=== PATIENT | male | born 1950 | race Caucasian/White ===

== ENCOUNTER 2018-06-11 15:38 | Inpatient (IN) | payer MEDICARE, OTHER | END 2018-06-12 12:55 | disposition short-term general hospital (02) | LOC: ER 15:38 → ICU 16:30 | PROC: 4A023N7 Measurement of Cardiac Sampling and Pressure, Left Heart, Percutaneous Approach (ICD-10-PCS; principal; 2018-06-12) | PROC: B2111ZZ Fluoroscopy of Multiple Coronary Arteries using Low Osmolar Contrast (ICD-10-PCS; 2018-06-12) | PROC: B2151ZZ Fluoroscopy of Left Heart using Low Osmolar Contrast (ICD-10-PCS; 2018-06-12) | PROC: B4101ZZ Fluoroscopy of Abdominal Aorta using Low Osmolar Contrast (ICD-10-PCS; 2018-06-12) | PROC: B4181ZZ Fluoroscopy of Bilateral Renal Arteries using Low Osmolar Contrast (ICD-10-PCS; 2018-06-12) | DX: I21.4 Non-ST elevation (NSTEMI) myocardial infarction (principal); I25.10 Atherosclerotic heart disease of native coronary artery without angina pectoris; I71.4 Abdominal aortic aneurysm, without rupture; I72.2 Aneurysm of renal artery; I10 Essential (primary) hypertension; K40.90 Unilateral inguinal hernia, without obstruction or gangrene, not specified as recurrent; F17.290 Nicotine dependence, other tobacco product, uncomplicated; Z85.89 Personal history of malignant neoplasm of other organs and systems; Z92.21 Personal history of antineoplastic chemotherapy; Z92.3 Personal history of irradiation ==

== ENCOUNTER 2019-11-13 13:00 | Outpatient (CLI) | payer MEDICARE ==
[~2019-11-13] VITALS: Ht 182.9 cm; Wt 90.9 kg
[~2019-11-13 13:00] MED LIST: GARL400T14 PO; LISI40TA PO; MAGN250T13 PO; OMEG10005 PO; POTA99TA7 PO
[2019-11-13] MEDS ORDERED: ASPI-1238 PO (13:31)
[2019-11-13] MEDS ORDERED: TMSL.4C PO (13:31)
[2019-11-13] MEDS ORDERED: ATOR40TA70 PO (13:31)
[2019-11-13] MEDS ORDERED: CLOP75TA69 PO (13:31)
[2019-11-13] MEDS ORDERED: LISI-552 PO (13:31)
[2019-11-13] MEDS ORDERED: CARV6.252 PO (13:31)
== END 2019-11-13 13:34 ==
LOC: PREOP 13:00
PROVIDERS: ATTEND Surgery
DX: Z01.818 Encounter for other preprocedural examination (principal)

== ENCOUNTER 2019-11-19 07:09 | Day surgery (SDC) | payer MEDICARE ==
[~2019-11-19] VITALS: Ht 182.9 cm; Wt 90.9 kg
[~2019-11-19 07:09] MED LIST changes: +ASPI-1238 PO; +ATOR40TA70 PO; +CARV6.252 PO; +CLOP75TA69 PO; +LISI-552 PO; +TMSL.4C PO
[2019-11-19] MEDS ORDERED: LACTATED RINGERS 1,000 ML IV ONE (07:10)
[2019-11-19] MEDS ORDERED: LACTATED RINGERS 1,000 ML IV STA (07:15)
[2019-11-19] MEDS ORDERED: PROPOFOL INJECTION 50 ML IV ONE (07:28)
[2019-11-19] MEDS ORDERED: MIDAZOLAM 2 MG/2 ML (VERSED) VIAL ONE (07:28)
[2019-11-19 07:46] VITALS: BP 133/90
[2019-11-19 08:55] VITALS: BP 90/63
[2019-11-19 09:00] VITALS: BP 89/69
[2019-11-19 09:10] VITALS: BP 106/68
--- NOTE | 2019-11-19 09:11 | Endoscopy Discharge Instruct ---
Endo Procedure/Findings Findings 1.: Polyp 2.: Diverticulosis 3.: Internal Hemorrhoids Discharge Instructions - Activity: You might feel a little sleepy until tomorrow. This is due to the medicine you received to relax you. Until tomorrow, you should: NOT drive a car, operate machinery or power tools. NOT drink any alcoholic beverages. NOT make any important decisions or sign importortant papers. Do not return to work until tomorrow, unless otherwise instructed. Resume previous activities tomorrow. Diet: Start by taking liquids. If you tolerate liquids, advance to solid food. 1.: Colonscopy in 5 years Notify Physician - If you experience excessive bleeding, unusual abdominal pain, fever, or chest pain, contact your doctor immediately. LETI KEVIN DO Nov 19, 2019 09:11
--- NOTE | 2019-11-19 09:11 | Progress Note-Post Operative ---
Post-Operative Progess Note Surgeon (s)/Hydrate Control Tender (s) Surgeon LETI KEVIN DO Hydrate Control Tender: VIC Sinclair Pre-Operative Diagnosis Screening colonoscopoy Post-Operative Diagnosis Polyps Diverticula Internal Hemorrhoids Procedure & Operative Findings Date of Procedure 11/19/19 Procedure Performed/Findings Colon with snare Colon with hot bx Anesthesia Type IV sedation by STAFF TOXICOLOGIST Estimated Blood Loss Estimated blood loss (mL): scant Specimens/Packing Specimens Removed Transverse colon polyp Rectal polyp x 2 LETI KEVIN DO Nov 19, 2019 09:10
[2019-11-19 10:10] VITALS: BP 125/88
--- NOTE | 2019-11-19 11:45 | Anesthesia-General Post-Op ---
MAC Patient Condition Mental Status/LOC: Same as Preop Cardiovascular: Satisfactory Nausea/Vomiting: Absent Respiratory: Satisfactory Pain: Controlled Complications: Absent Post Op Complications Complications None Follow Up Care/Instructions Patient Instructions None needed. Anesthesiology Discharge Order Discharge Order Patient is doing well, no complaints, stable vital signs, no apparent adverse anesthesia problems. No complications reported per nursing. DAVE GARCIA [id number] ANALYST Nov 19, 2019 11:45
--- NOTE | 2019-11-20 01:00 | OPERATIVE REPORT ---
DATE OF SERVICE: 11/19/2019 PREOPERATIVE DIAGNOSIS: Screening colonoscopy. POSTOPERATIVE DIAGNOSES: Colon polyps, diverticula, internal hemorrhoids. PROCEDURE: 1. Colonoscopy with snare polypectomy. 2. Colonoscopy with hot biopsy. SURGEON: Rayray Meneses DO HOSPITAL TELEVISION RENTAL CLERK: Ric Palencia MS3. ANESTHESIA: IV sedation by the MANAGER MEDICARE MARKETING. SPECIMEN: Transverse colon polyp, one small rectal polyp, one large rectal polyp. BLOOD LOSS: Scant. FLUIDS: Per anesthesia. POSTOPERATIVE CONDITION: Stable. INDICATION FOR PROCEDURE: The patient is a 69-year-old male who needs a screening colonoscopy. FINDINGS: The patient had a small polyp in the transverse colon, a small polyp in the rectum and then a larger polyp in the rectum. He also had some diverticula and some internal hemorrhoids. PROCEDURE NOTE: After informed consent was obtained, the patient was brought to the endoscopy suite, placed in bed in left lateral decubitus position. He was administered IV sedation by the MANAGER MEDICARE MARKETING who then monitored his vitals the entire time, heart rate, blood pressure and pulse ox and the scope was inserted, pushed all the way to about 140 cm, able to get all the way to cecum. On the way in, noted a small flat polyp in the transverse colon, did elect to do a hot biopsy of this. Also on the way in, noted some diverticula in the sigmoid colon, took pictures, able to push all the way to the cecum, took a picture of appendiceal orifice, noted the ileocecal valve and then slowly withdrew the scope insufflating to look circumferentially at the minor looking the cecum, up the ascending colon to the hepatic flexure, then down the transverse colon, splenic flexure, into the descending colon down in the sigmoid and finally into the rectum. In the rectum, saw another small flat polyp, I elected to do another hot biopsy and then while turning around to look saw a large polyp. Wanted to be able to remove this completely, so I elected to do a snare polypectomy, removed this polyp completely. Retroflexed the scope in the rectal vault, saw some internal hemorrhoids, took a picture and then removed the scope. The patient tolerated the procedure. He was recovered in endoscopy suite. Job ID: [id number] DocumentID: [id number] Dictated Date: 11/19/2019 15:26:01 Core Drilling Supervisor Date: 11/20/2019 00:59:44 Dictated By: DO JANY MCCANND
== END 2019-11-19 10:10 | disposition home or self-care (01) ==
LOC: ENDO 07:09
PROVIDERS: ATTEND Surgery
DX: Z12.11 Encounter for screening for malignant neoplasm of colon (principal); D12.3 Benign neoplasm of transverse colon; D12.8 Benign neoplasm of rectum; K57.30 Diverticulosis of large intestine without perforation or abscess without bleeding; K64.8 Other hemorrhoids; I10 Essential (primary) hypertension; I25.2 Old myocardial infarction; I25.119 Atherosclerotic heart disease of native coronary artery with unspecified angina pectoris; F17.210 Nicotine dependence, cigarettes, uncomplicated; Z79.899 Other long term (current) drug therapy; Z88.5 Allergy status to narcotic agent; Z95.5 Presence of coronary angioplasty implant and graft; Z86.03 Personal history of neoplasm of uncertain behavior
CPT/HCPCS: 88305

== ENCOUNTER 2019-11-21 13:03 | Day surgery (SDC) | payer MEDICARE ==
[~2019-11-21] VITALS: Ht 182.8 cm; Wt 88.0 kg
[~2019-11-21 13:03] MED LIST changes: +HEParin 1000 UNIT/ML (10ML VIAL) FOR BOLUS ONE; +MIDAZOLAM 5 MG/5 ML (VERSED) VIAL ONE; +NITRO DRIP 25000 MCG/D5W 0 ML IV ONE; +fentaNYL INJECTION 100 MCG/2 ML AMP ONE
[2019-11-21] MEDS ORDERED: LIDOCAINE 1% INJ 20 ML 20 ML VIAL ONE (13:20)
[2019-11-21] MEDS ORDERED: HEParin (CATH LAB) 2,000 ML IV ONE (13:20)
[2019-11-21] MEDS ORDERED: NS IV 1000 ML 1,000 ML ONE (13:20)
[2019-11-21 13:21] LABS: BASOPHILS # (AUTO) 0.1 10^3/uL (0.0-0.1); BASOPHILS % (AUTO) 1 % (0-10); EOSINOPHILS # (AUTO) 0.1 10^3/uL (0.0-0.3); EOSINOPHILS % (AUTO) 1 % (0-10); HEMATOCRIT 40 % (40-54); HEMOGLOBIN 13.5 g/dL (13.3-17.7); LYMPHOCYTES # (AUTO) 2.2 10^3/uL (1.0-4.0); LYMPHOCYTES % (AUTO) 22 % (12-44); MEAN CORPUSCULAR HEMOGLOBIN 30 pg (25-34); MEAN CORPUSCULAR HGB CONC 34 g/dL (32-36); MEAN CORPUSCULAR VOLUME 90 fL (80-99); MEAN PLATELET VOLUME 9.3 fL (9.0-12.2); MONOCYTES # (AUTO) 0.6 10^3/uL (0.0-1.0); MONOCYTES % (AUTO) 6 % (0-12); NEUTROPHILS # (AUTO) 7.2 10^3/uL (1.8-7.8); NEUTROPHILS % (AUTO) 70 % (42-75); PLATELET COUNT 213 10^3/uL (130-400); WHITE BLOOD COUNT 10.3 10^3/uL (4.3-11.0)
--- NOTE | 2019-11-21 13:29 | Cardiology History & Physical ---
HPI-Cardiology Cardiology Consultation Date of Consultation 11/21/19 Date of Admission Time Seen by Provider: 13:26 Indication: chest pain HPI 69 years old gentleman with extensive coronary artery disease, hypertension hyperlipidemia and tobaccoism. He has stopped his Plavix about a week ago in preparation for colonoscopy, had a colonoscopy done 2 days ago, restarted Plavix this morning, started to have left arm pain and left side of his neck pain and jaw pain similar to the pain that he had prior to his initial cardiac catheterization. Cold EMS he was noted to have EKG changes. Given morphine and sublingual nitroglycerin reported improvement of his chest pain, still having mild left arm discomfort, no shortness of breath. No palpitation. No syncope or near syncopal episodes. No claudications. No fever or chills. PMH-Cardiology Seasonal Allergies Seasonal Allergies: No Surgeries Yes (HERNIA REPAIR, NECK SX ) Respiratory No Cardiovascular Yes Neurological No (seizures when little none since 7 yrs old) Genitourinary No Gastrointestinal Yes (INGUINAL HERNIA) Musculoskeletal No Endocrine No HEENT No Cancer Yes Type of Treatment: Radiation Psychosocial No Integumentary No Blood Transfusions No Social History Patient Social History Marrital Status: Employed/Student: employed Smoking: Current every day smoker Family Hx Other Discussed below ROS-Cardiology Review of Systems General: No Chills, No Night Sweats; Fatigue; No Malaise, No Appetite HEENT: No Head Aches, No Visual Changes, No Eye Pain, No Ear Pain, No Dysphasia, No Sinus Congestion, No Post Nasal Drip, No Sore Throat Pulmonary: Dyspnea; No Cough, No Pleuritic Chest Pain Cardiovascular: Chest Pain; No: Palpitations, Orthopnea, Paroxysmal Noc. Dyspnea, Edema, Lt Headedness Gastrointestinal: No: Nausea, Vomiting, Abdominal Pain, Diarrhea, Constipation, Melena, Hematochezia Genitourinary: No Dysuria, No Frequency, No Incontinence, No Hematuria, No Retention Musculoskeletal: No: neck pain, shoulder pain, arm pain, back pain, hand pain, leg pain, foot pain Neurological: No: Weakness, Numbness, Incoordination, Change in speech, Confusion, Seizures Home Medications & Allergies Allergies: Coded Allergies: meperidine (Verified Allergy, Unknown, 06/11/18) sweats and heart racing Home Medication List Reviewed: Yes Exam-Cardiology Exam General Appearance: Alert, Oriented X3, Cooperative, No Acute Distress HEENT: Atraumatic, PERRLA Respiratory: Clear to Auscultation, Normal Air Movement Cardiovascular: Regular Rate, Normal S1, Normal S2, No Murmurs Abdominal: Normal Bowel Sounds, Soft, No Tenderness, No Hepatosplenomegaly, No Masses Extremities: No Clubbing, No Cyanosis, No Edema, Normal Pulses, No Tenderness/Swelling Skin: No Rashes, No Breakdown, No Significant Lesion Neuro: Normal Gait, Normal Speech, Strength at 5/5 X4 Ext, Normal Tone, Sensation Intact Psych/Mental Status: Mental Status NL, Mood NL Results Labs Labs Laboratory Tests 11/21/19 13:10: White Blood Count 10.3, Red Blood Count 4.47, Hemoglobin 13.5, Hematocrit 40, Mean Corpuscular Volume 90, Mean Corpuscular Hemoglobin 30, Mean Corpuscular Hemoglobin Concent 34, Red Cell Distribution Width 12.7, Platelet Count 213, Mean Platelet Volume 9.3, Immature Granulocyte % (Auto) 1, Neutrophils (%) (Auto) 70, Lymphocytes (%) (Auto) 22, Monocytes (%) (Auto) 6, Eosinophils (%) (Auto) 1, Basophils (%) (Auto) 1, Neutrophils # (Auto) 7.2, Lymphocytes # (Auto) 2.2, Monocytes # (Auto) 0.6, Eosinophils # (Auto) 0.1, Basophils # (Auto) 0.1, Immature Granulocyte # (Auto) 0.1 A/P-Cardiology Admission Diagnosis Unstable angina Coronary artery disease Hypertension Hyperlipidemia Admission Status: Observation Assessment/Plan Unstable angina, EKG changes, planning to proceed with emergency cardiac catheterization possible PTCA Coronary artery disease, had a cardiac catheterization May [address] Smith reported multivessel coronary artery disease referred for evaluation for bypass surgery, patient elected to high risk intervention had complex multives clari intervention in [facility]. Has been following with Dr. 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 Carver Hypertension, restart home medication and monitor Hyperlipidemia, restart home medication monitor Tobaccoism, educated on smoking cessation RASHAWN BOWERS MD Nov 21, 2019 13:29
--- NOTE | 2019-11-21 13:30 | Cardiac Procedure Note-CS/ASA ---
Pre-Procedure Note Pre-Op Procedure Note H&P Reviewed The H&P was reviewed, patient examined and no changes noted. Date H&P Reviewed: Nov 21, 2019 Time H&P Reviewed: 13:29 Conscious Sedation Pre-Proced Time 13:29 ASA Score 3 For ASA 3 and 4: Consider anesthesia and medical clearance. Also, for patients with a history of failed moderate sedation consider anesthesia. Airway Lungs Heart ASA score ASA 1: a normal healthy patient ASA 2: a patient with a mild systemic disease (mid diabetes, controlled hypertension, obesity x ASA 3: a patient with a severe systemic disease that limits activity (angina, COPD, prior Myocardial infarction) ASA 4: a patient with an incapacitating disease that is a constant threat to life (CHF, renal failure) ASA 5: a moribund patient not expected to survive 24 hrs. (ruptured aneurysm) ASA 6: a declared brain- patient whose organs are being harvested. For emergent operations, add the letter E after the classification Mallampati Classification Grade 3 Sedation Plan Analgesia, Amnesia, Plan communicated to team members, Discussed options with patient/fam, Discussed risks with patient/fam The patient is an appropriate candidate to undergo the planned procedure, sedation, and anesthesia. The patient immediately re-assessed prior to indication. RASHAWN BOWERS MD Nov 21, 2019 13:30
[2019-11-21 13:40] LABS: ALBUMIN 3.3 GM/DL (3.2-4.5); CHLORIDE 101 MMOL/L (98-107); POTASSIUM 3.6 MMOL/L (3.6-5.0); SODIUM 133 MMOL/L (135-145)
[2019-11-21 13:41] LABS: CALCIUM 8.4 MG/DL (8.5-10.1)
[2019-11-21 13:43] LABS: GLUCOSE 99 MG/DL (70-105); TOTAL PROTEIN 6.5 GM/DL (6.4-8.2)
[2019-11-21 13:44] LABS: CARBON DIOXIDE 21 MMOL/L (21-32)
[2019-11-21 13:44] LABS: INR 1.2 (0.8-1.4); PROTHROMBIN TIME PATIENT 15.2 SEC (12.2-14.7)
[2019-11-21 13:45] LABS: BILIRUBIN,TOTAL 1.3 MG/DL (0.1-1.0)
--- NOTE | 2019-11-21 13:45 | NUR ---
Have attempted to call pt's twice. No answer and no voicemail set up.
[2019-11-21 13:46] LABS: ALKALINE PHOSPHATASE 181 U/L (40-136); CREATININE SERUM 0.73 MG/DL (0.60-1.30); GFR ESTIMATED > 60
[2019-11-21 13:47] LABS: BUN/CREATININE RATIO 11
--- NOTE | 2019-11-21 13:48 | ED Chest Pain ---
General Chief Complaint: Chest Pain Stated Complaint: STEMI Nursing Triage Note: Pt to ED via EM for chest pain. 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 Pt reports pain radiated to L arm and described as tingling. Pt reports pain had resolved by time of arrival to ED. Pt reports stopping Plavix a couple days ago. EMS reports giving Pt 6 mg of morphine, 3 nitro and 324 mg ASA enroute. Nursing Sepsis Screen: No Definite Risk Source: patient Exam Limitations: no limitations History of Present Illness Date Seen by Provider: Nov 21, 2019 Time Seen by Provider: 13:15 Initial Comments This 69-year-old gentleman presents to the emergency room via [facility] with reported STEMI. Patient developed chest pain while working this morning. EMS administered nitroglycerin 3, aspirin, and morphine 6 mg IV. Pain resolved with these therapies. Multiple 12-lead EKGs performed by EMS suggested ST eleva tion. EKG obtained on arrival suggested ischemia but was not diagnostic for STEMI. Dr. Christianson have been notified prior to patient arrival in promptly presented to the ER. Patient denied any cough, fever, shortness of breath, or known coded exposures. Family reported he may have had an exposure to someone he gave ride to, but that about 2 weeks ago. Rapid COVID swab was obtained. Allergies and Home Medications Allergies Coded Allergies: meperidine (Verified Allergy, Unknown, 06/11/18) sweats and heart racing Home Medications Aspirin 81 Mg Tablet.dr, 81 MG PO DAILY, (Reported) Atorvastatin Calcium 40 Mg Tablet, 40 MG PO DAILY, (Reported) Carvedilol 6.25 Mg Tablet, 6.25 MG PO BID, (Reported) Clopidogrel Bisulfate 75 Mg Tablet, 75 MG PO DAILY, (Reported) Isosorbide Mononitrate 30 Mg Tab.er.24h, 30 MG PO DAILY Prescribed by: OMAR ENCARNACION on 11/22/19 0814 Lisinopril 20 Mg Tablet, 20 MG PO DAILY, (Reported) [place]-3 Fatty Acids 1,000 Mg Capsule, 1,000 MG PO DAILY, (Reported) Tamsulosin HCl 0.4 Mg Cap, 0.4 MG PO DAILY, (Reported) Patient Home Medication List Home Medication List Reviewed: Yes Review of Systems Review of Systems Constitutional: no symptoms reported EENTM: No Symptoms Reported Respiratory: No Symptoms Reported Cardiovascular: See HPI Gastrointestinal: No Symptoms Reported Genitourinary: No Symptoms Reported Musculoskeletal: no symptoms reported Skin: no symptoms reported Psychiatric/Neurological: No Symptoms Reported Endocrine: No Symptoms Reported Hematologic/Lymphatic: No Symptoms Reported Past Jptdbbb-[id number]-Ornnyd Hx Past Med/Social Hx: Reviewed Nursing Past Med/Soc Hx Patient Social History Alcohol Use: Denies Use Recreational Drug Use: No Smoking Status: Current Everyday Smoker Type Used: Cigarettes, Pipe Recent Foreign Travel: No Contact w/Someone Who Travel: No Recent Infectious Disease Expo: No Recent Hopitalizations: No Seasonal Allergies Seasonal Allergies: No Past Medical History Surgeries: Yes (HERNIA REPAIR, NECK SX ) Coronary Stent Respiratory: No Cardiac: Yes Coronary Artery Disease, Heart Attack, Hypertension Neurological: No (seizures when little none since 7 yrs old) Genitourinary: No Gastrointestinal: Yes (INGUINAL HERNIA) Musculoskeletal: No Endocrine: No HEENT: No Cancer: Yes What Type of Treatment Did You: Radiation Psychosocial: No Integumentary: No Blood Disorders: No Physical Exam Vital Signs Vital Signs - First Documented Capillary Refill : Less Than 3 Seconds Height, Weight, BMI Height: 6'0.00" Weight: 199lbs. 8.0oz. 90.059655uq; 27.00 BMI Method:Stated General Appearance: No Apparent Distress, WD/WN HEENT: PERRL/EOMI, Normal ENT Inspection Neck: Normal Inspection; No JVD Respiratory: Lungs Clear, Normal Breath Sounds, No Accessory Muscle Use, No Respiratory Distress Cardiovascular: Regular Rate, Rhythm, No Edema, Normal Peripheral Pulses Gastrointestinal: Normal Bowel Sounds, Non Tender, Soft Extremity: Normal Inspection, No Pedal Edema Neurologic/Psychiatric: Alert, Oriented x3, No Motor/Sensory Deficits, Normal Mood/Affect, lead trainer II-XII Norm as Tested Skin: Normal Color, Warm/Dry Progress/Results/Core Measures Results/Orders Lab Results Laboratory Tests Test 11/21/19 13:04 11/21/19 13:10 Range/Units Prothrombin Time 15.2 H 12.2-14.7 SEC INR Comment 1.2 0.8-1.4 Activated Partial Thromboplast Time 26 24-35 SEC White Blood Count 10.3 4.3-11.0 10^3/uL Red Blood Count 4.47 4.30-5.52 10^6/uL Hemoglobin 13.5 13.3-17.7 g/dL Hematocrit 40 40-54 % Mean Corpuscular Volume 90 80-99 fL Mean Corpuscular Hemoglobin 30 25-34 pg Mean Corpuscular Hemoglobin Concent 34 32-36 g/dL Red Cell Distribution Width 12.7 10.0-14.5 % Platelet Count 213 130-400 10^3/uL Mean Platelet Volume 9.3 9.0-12.2 fL Immature Granulocyte % (Auto) 1 % Neutrophils (%) (Auto) 70 42-75 % Lymphocytes (%) (Auto) 22 12-44 % Monocytes (%) (Auto) 6 0-12 % Eosinophils (%) (Auto) 1 0-10 % Basophils (%) (Auto) 1 0-10 % Neutrophils # (Auto) 7.2 1.8-7.8 10^3/uL Lymphocytes # (Auto) 2.2 1.0-4.0 10^3/uL Monocytes # (Auto) 0.6 0.0-1.0 10^3/uL Eosinophils # (Auto) 0.1 0.0-0.3 10^3/uL Basophils # (Auto) 0.1 0.0-0.1 10^3/uL Immature Granulocyte # (Auto) 0.1 0.0-0.1 10^3/uL Sodium Level 133 L 135-145 MMOL/L Potassium Level 3.6 3.6-5.0 MMOL/L Chloride Level 101 98-107 MMOL/L Carbon Dioxide Level 21 21-32 MMOL/L Anion Gap 11 5-14 MMOL/L Blood Urea Nitrogen 8 7-18 MG/DL Creatinine 0.73 0.60-1.30 MG/DL Estimat Glomerular Filtration Rate > 60 BUN/Creatinine Ratio 11 Glucose Level 99 70-105 MG/DL Calcium Level 8.4 L 8.5-10.1 MG/DL Corrected Calcium 9.0 8.5-10.1 MG/DL Magnesium Level 1.5 L 1.6-2.4 MG/DL Total Bilirubin 1.3 H 0.1-1.0 MG/DL Aspartate Amino Transf (AST/SGOT) 21 5-34 U/L Alanine Aminotransferase (ALT/SGPT) 14 0-55 U/L Alkaline Phosphatase 181 H 40-136 U/L Myoglobin 86.9 10.0-92.0 NG/ML Troponin I 0.098 H <0.028 NG/ML B-Type Natriuretic Peptide 148.0 H <100.0 PG/ML Total Protein 6.5 6.4-8.2 GM/DL Albumin 3.3 3.2-4.5 GM/DL Coronavirus 2019 (MARIAH) Negative Negative Vital Signs/I&O 11/21/19 11/21/19 13:05 13:05 Temp 36.9 Pulse 76 Resp 17 B/P (MAP) 124/95 (105) Pulse Ox 97 O2 Delivery Room Air Room Air Blood Pressure Mean: 105 Progress Progress Note : Progress Note Dr. Christianson was contacted and Motor Vehicle Field Representative activated prior to patient's arrival. They presented promptly to the ER to assess patient. EKG suggested some ischemia but not diagnostic for STEMI. Working diagnosis was unstable angina and patient was taken to the Motor Vehicle Field Representative. Initial ECG Impression Date: Nov 21, 2019 Initial ECG Impression Time: 13:06 Initial ECG Rate: 87 Initial ECG Rhythm: Normal Sinus Comment Sinus rhythm with borderline ST elevation. RBBB. No axis deviation. Diagnostic Imaging Diagonstic Imaging: Xray Plain Films/CT/US/NM/MRI: chest Comments NAME: JERRY JURADO MED REC#: [id number] PT STATUS: REG [facility] : 1950 PHYSICIAN: ADONAY TRINIDAD ADMIT DATE: 11/21/19/[facility] Signed Date of Exam:11/21/19 CHEST 1 VIEW, AP/PA ONLY INDICATION: Chest pain. COMPARISON: 06/11/2018. FINDINGS: Some prominence of the lung markings and air trapping as well as biapical scarring chronic. No acute infiltrate, failure pattern, effusion or pneumothorax. IMPRESSION: Stable chronic findings. Dictated by: Dictated on workstation # [id number] Dict: 11/21/19 1342 Trans: 11/21/19 1636 [facility] [id number] Interpreted by: ELPIDIO DORANTES Electronically signed by: ELPIDIO DORANTES 11/21/19 1636 Departure Communication (Admissions) Time/Spoke to Admitting Phy: 12:34 Dr. Christianson Impression Primary Impression: Unstable angina Additional Impression: Chest pain Qualified Codes: R07.9 - Chest pain, unspecified Disposition: ADMITTED INPATIENT Condition: Stable Admissions Decision to Admit Reason: Admit from ER (General) Decision to Admit/Date: Nov 21, 2019 Time/Decision to Admit Time: 13:15 Departure-Patient Inst. Referrals: NO,LOCAL PHYSICIAN (PCP/Family) Primary Care Physician Scripts Isosorbide Mononitrate (Isosorbide Mononitrate ER) 30 Mg Tab.er.24h 30 MG PO DAILY for 30 Days, #30 TAB 5 Refills Prov: OMAR PEDRO 11/22/19 DION SNOW MD Nov 21, 2019 13:48
[2019-11-21 13:49] LABS: ALANINE AMINOTRANSFERASE 14 U/L (0-55); MAGNESIUM 1.5 MG/DL (1.6-2.4)
[2019-11-21] MEDS ORDERED: NS IV 1000 ML 1,000 ML IV SCH (14:34)
[2019-11-21] MEDS ORDERED: PATIENT MAY USE OWN MEDS, ALL PO SCH (14:45)
--- NOTE | 2019-11-21 15:18 | Cardiac Cath Report ---
Cardiac Cath Report Physician (s)/Program Proposals Coordinator (s) Physician RASHAWN BOWERS MD Pre-Procedure Diagnosis Pre-Procedure Diagnosis: chest pain, coronary artery disease Post-Procedure Note Procedure Start Date: Nov 21, 2019 Name of Procedure: Left heart catheterization Left ventriculogram Aortic arch angiogram Findings/Procedure Note PROCEDURE NOTE: 69 years old gentleman with history of extensive coronary artery disease, multiple intervention done in 2019, admitted with acute chest pain, known to have abdominal aortic aneurysm diffuse ectasia. Had mild elevation troponin, decided to proceed with cardiac catheterization possible PTCA. After explaining the procedure to the patient, all pros and cons were explained, all questions were answered. The patient signed the consent and then he was placed on the cardiac catheterization laboratory. Groin was prepped SL fashion local anesthesia was used. Sheath placed in the right femoral artery. Lisa right and left catheter were used to access the coronary system. Pigtail was used to access the left ventricular cavity. Left ventriculogram was done Aortic arch angiogram was done to evaluate the aortic arch due to the fact that he has extensive aortic aneurysm reported previously. At the end of the procedure the sheath was removed. Closure device was used FINDINGS: Hemodynamics LV 143/23, end-diastolic pressure of 23 Aorta 148/83 mean of 105 ANATOMY: Left Main is free of obstructive disease Left Anterior Descending has diffuse ectasia, patent stent in the mid LAD, small vessel disease distally Left Circumflex has diffuse ectasia with patent stent in the mid circumflex artery Right Coronory Artery has diffuse ectasia with patent stent in the proximal right coronary artery LV Gram was done showing normal left ventricular size and systolic function estimated ejection fraction 60 percent Aorta evaluation done with aortic arch angiogram showing a normal aortic arch, severe bovine arch, severe hypertensive changes, normal origin of the vertebral basilar artery, left subclavian and left carotid artery CONCLUSION: 1. 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 Normal left ventricular size and systolic function estimated ejection fraction 60 percent 3. Heavily calcified aortic arch with bovine arch, calcified arteries of the neck, no dissection or aneurysm, hypertensive changes DISCUSSION AND RECOMMENDATION: Maximizing medical therapy is recommended. No intervention is warranted Anesthesia Type: Conscious Sedation Estimated blood loss (mL): 25 ml Contrast Amount: 65 ml Total Radiation Dose: 618 mGy Post-Procedure Diagnosis Post-operative diagnosis: Unstable angina Coronary artery disease Hypertension Hyperlipidemia RASHAWN BOWERS MD Nov 21, 2019 15:18
--- NOTE | 2019-11-21 15:24 | NUR ---
PT DENIES ANY FEVER/COUGH/SOB; THIS RN SPOKE TO ER AND ALLY EDWARD RN, NO NEED TO COVID SWAB PT AT THIS TIME.
--- NOTE | 2019-11-21 19:06 | NUR ---
PT TRANSFERRED TO ROOM 410 VIA DELLA W/ LETI GRACIA. REPORT GIVEN TO EMILIE GRACIA, NO QUESTIONS/CONCERNS VOICED.
--- NOTE | 2019-11-21 19:35 | NUR ---
puma at bedside with pt-this rn examined pt groin site with puma-site soft, no drainage noted, pedal pulses equal bilaterally. pt denies any questions or concerns at this time.
[2019-11-21] MEDS: CARVEDILOL 6.25 MG (COREG) TAB PO SCH (20:07)
[2019-11-21 22:23] VITALS: BP 150/88
--- NOTE | 2019-11-21 22:36 | NUR ---
pt refusing flu vac. pt states he does not take immunizations.
[2019-11-22 05:10] LABS: HEMOGLOBIN 13.2 g/dL (13.3-17.7); MEAN PLATELET VOLUME 9.7 fL (9.0-12.2); WHITE BLOOD COUNT 7.5 10^3/uL (4.3-11.0)
[2019-11-22 05:51] LABS: CHLORIDE 106 MMOL/L (98-107); POTASSIUM 3.9 MMOL/L (3.6-5.0); SODIUM 138 MMOL/L (135-145)
[2019-11-22 05:52] LABS: ALBUMIN 3.1 GM/DL (3.2-4.5)
[2019-11-22 05:53] LABS: CALCIUM 8.4 MG/DL (8.5-10.1); TRIGLYCERIDES 88 MG/DL (<150); VLDL CHOLESTEROL 18 MG/DL (5-40)
[2019-11-22 05:54] LABS: GLUCOSE 83 MG/DL (70-105); TOTAL PROTEIN 6.2 GM/DL (6.4-8.2)
[2019-11-22 05:55] LABS: CARBON DIOXIDE 23 MMOL/L (21-32)
[2019-11-22 05:56] LABS: BILIRUBIN,TOTAL 0.8 MG/DL (0.1-1.0)
[2019-11-22 05:58] LABS: ALKALINE PHOSPHATASE 166 U/L (40-136); CHOLESTEROL 82 MG/DL (< 200); CREATININE SERUM 0.76 MG/DL (0.60-1.30); GFR ESTIMATED > 60
[2019-11-22 05:59] LABS: BUN/CREATININE RATIO 9
[2019-11-22 06:00] LABS: HDL CHOLESTEROL 21 MG/DL (40-60)
[2019-11-22 06:01] LABS: ALANINE AMINOTRANSFERASE 16 U/L (0-55)
--- NOTE | 2019-11-22 08:10 | Cardiology Progress Note ---
Subjective Date Seen by Provider: Nov 22, 2019 Time Seen by Provider: 08:08 Subjective/Events-last exam Patient is sitting up in bed, denies any further episode of chest pain or dyspnea Review of Systems General: No Chills, No Night Sweats, No Fatigue, No Malaise, No Appetite, No Other HEENT: No Head Aches, No Visual Changes, No Eye Pain, No Ear Pain, No Dysphasia, No Sinus Congestion, No Post Nasal Drip, No Sore Throat, No Other Pulmonary: No Dyspnea, No Cough, No Pleuritic Chest Pain, No Other Cardiovascular: No: Chest Pain, Palpitations, Orthopnea, Paroxysmal Noc. Dyspnea, Edema, Lt Headedness, Other Objective-Cardiology Exam Last Set of Vital Signs Bad tableI&O Intake and Output 11/22/19 00:00 Intake Total 1000 ml Output Total 1200 ml Balance -200 ml Intake Oral 1000 ml Output Urine Total 1200 ml # Voids 1 Daily Weight Change No No General: Alert, Oriented X3, Cooperative, No Acute Distress HEENT: Atraumatic, PERRLA Lungs: Clear to Auscultation, Normal Air Movement Heart: Regular Rate, Normal S1, Normal S2, No Murmurs Abdomen: Normal Bowel Sounds, Soft, No Tenderness, No Hepatosplenomegaly, No Masses Extremities: No Clubbing, No Cyanosis, No Edema, Normal Pulses, No Tend erness/Swelling Skin: No Rashes, No Breakdown, No Significant Lesion Neuro: Normal Gait, Normal Speech, Strength at 5/5 X4 Ext, Normal Tone, Sensation Intact Psych/Mental Status: Mental Status NL, Mood NL Results Lab Laboratory Tests 11/21/19 13:10 11/22/19 04:30 A/P-Cardiology Admission Diagnosis Unstable angina Coronary artery disease Hypertension Hyperlipidemia Assessment/Plan Unstable angina, EKG changes, underwent cardiac catheterization yesterday revealing diffuse coronary ectasia with small vessel disease, patent stent in the LAD, stent in the circumflex artery and stent in the right coronary artery. Normal left ventricular size and systolic function estimated ejection fraction 60 percent. Heavily calcified aortic arch with bovine arch, calcified arteries of the neck, no dissection or aneurysm, hypertensive changes. Chest pain likely secondary to small vessel disease. I will start patient on Imdur. Coronary artery disease, had a cardiac catheterization May [address] Smith reported multivessel coronary artery disease referred for evaluation for bypass surgery, patient elected to high risk intervention had complex multivessel intervention in [facility]. Has been following with Dr. Carver. Underwent cardiac catheterization yesterday as discussed above. 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 Carver Hypertension, continue to monitor Hyperlipidemia, continue to monitor. Tobaccoism, educated on smoking cessation Patient was seen and evaluated with Adry, examination performed, management plan was discussed, agree with the current scribed note, I made few changes to the note using Italic font Patient was seen and evaluated, groin is healing well Had a long discussion about his coronary anatomy recommended the use of long- acting nitroglycerin Educated in length compliance with medications smoking cessation Clinical Quality Measures AMI/AHF: ASA po Prior to arrival: Yes (324 mg per EMS) DVT/VTE Risk/Contraindication: Risk Factor Score Per Nursin RFS Level Per Nursing on Admit: 2=Moderate ADRY PEDRO Nov 22, 2019 8:10 am RASHAWN BOWERS MD Nov 22, 2019 9:02 am
--- NOTE | 2019-11-22 08:11 | Cardiology Progress Note ---
Subjective Date Seen by Provider: Nov 22, 2019 Time Seen by Provider: 08:06 Subjective/Events-last exam Patient is sitting up in bed, denies any further episode of chest pain or dy spnea. Objective-Cardiology Exam Last Set of Vital Signs Vital Signs 11/22/19 09:40 Temp 36.7 Pulse 77 Resp 17 B/P (MAP) 124/74 Pulse Ox 94 O2 Delivery Room Air Capillary Refill : Less Than 3 Seconds I&O General: Alert, Oriented X3, Cooperative, No Acute Distress HEENT: Atraumatic, PERRLA Lungs: Clear to Auscultation, Normal Air Movement Heart: Regular Rate, Normal S1, Normal S2, No Murmurs Abdomen: Normal Bowel Sounds, Soft, No Tenderness, No Hepatosplenomegaly, No Masses Extremities: No Clubbing, No Cyanosis, No Edema, Normal Pulses, No Tenderness/Swelling Skin: No Rashes, No Breakdown, No Significant Lesion Neuro: Normal Gait, Normal Speech, Strength at 5/5 X4 Ext, Normal Tone, Sensation Intact Psych/Mental Status: Mental Status NL, Mood NL Results Lab A/P-Cardiology Admission Diagnosis Unstable angina Coronary artery disease Hypertension Hyperlipidemia Assessment/Plan Unstable angina, EKG changes, cardiac catheterization carried out yesterday showed Coronary artery disease, had a cardiac catheterization May [address] Smith reported multivessel coronary artery disease referred for evaluation for bypass surgery, patient elected to high risk intervention had complex multivessel intervention in [facility]. Has been following with Dr. 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 Carver Hypertension, restart home medication and monitor Hyperlipidemia, restart home medication monitor Tobaccoism, educated on smoking cessation Clinical Quality Measures AMI/AHF: ASA po Prior to arrival: Yes (324 mg per EMS) DVT/VTE Risk/Contraindication: Risk Factor Score Per Nursin RFS Level Per Nursing on Admit: 2=Moderate OMAR PEDRO Nov 22, 2019 08:11
[2019-11-22] MEDS ORDERED: ISOS30TA3 PO (08:14)
[2019-11-22] MEDS: CARVEDILOL 6.25 MG (COREG) TAB PO SCH (08:43)
[2019-11-22] MEDS ORDERED: FATTY ACIDS PO SCH (09:00)
[2019-11-22] MEDS ORDERED: TAMSULOSIN 0.4 MG (FLOMAX) CAP PO SCH (09:00)
[2019-11-22] MEDS ORDERED: OMEGA 3 (FISH OIL) 1000 MG CAP PO SCH (09:00)
[2019-11-22] MEDS ORDERED: lisINopril 20 MG (PRINIVIL) TABLET PO SCH (09:00)
[2019-11-22] MEDS ORDERED: ASPIRIN E.C. 81 MG (ECOTRIN) TAB PO SCH (09:00)
[2019-11-22] MEDS ORDERED: OMEGA PO SCH (09:00)
[2019-11-22] MEDS ORDERED: CLOPIDOGREL 75 MG (PLAVIX) TABLET PO SCH (09:00)
--- NOTE | 2019-11-22 09:00 | Discharge Inst-Post CATH ---
Discharge Inst-CATH/EP Problems Reviewed?: Yes Post Cardiac Cath/EP D/C Inst Follow Up/Plan Appointment with primary recruit instructor in 1-2 weeks <b>CARDIAC CATH/EP PROCEDURE DISCHARGE INSTRUCTIONS</b> ACTIVITY * Go Home directly and rest. * Limit activity of the leg (or wrist if it was used) for 7 days including aero bics, swimming, jogging, bicycling, etc. * Restrict stair-climbing for 7 days if possible, if not, climb up with your non-cath leg, then bring together on the same step. * Avoid lifting, pushing, pulling or excessive movement of the affected extremit y for 7 days. * Customary sexual activity may be resumed after 2 days-use caution not to use a position that strains or causes pain to the affected extremity. * No driving for 24 hours. * NO SMOKING. * Avoid straining for bowel movements for 7 days. * Gentle walking on level ground is allowed. * Returning to work will depend on the type of procedure and the results. Your doctor will discuss this with you. CALL YOUR DOCTOR FOR ANY OF THE FOLLOWING: *If bleeding from the puncture site occurs- Apply gentle pressure to site with clean cloth and call your doctor or EMS. * If a knot or lump forms under the skin, increases in size, or causes pain. * If bruising appears to be worsening or moving further down your leg instead of disappearing. * Temperature above 101 F. CARE OF YOUR GROIN INCISION; * Bruising or purple discoloration of the skin near the puncture site is common. * You may shower only, no bathtub bathing for 5 days. Be careful to avoid slipping as your leg may feel stiff. * If a closure device was used on your femoral artery, please see the attached guide regarding care of the device and your leg. * Leave dressing on FOR 24 hours. CARE OF YOUR WRIST INCISION; * Bruising or purple discoloration of the skin near the puncture site is common. * You may shower. * DO NOT submerge wrist. * Leave dressing on FOR 24 hours. RASHAWN BOWERS MD Nov 22, 2019 09:00
--- NOTE | 2019-11-22 09:30 | NUR ---
CM/SS: Visit with pt as per consult related to needing Transportation home Plan: Pt will return home and his daughter will be able to pick him up this morning Summary: Pt was having some issues with getting a ride home. Pt lives in [place] and his has not driven for 25 years due to having multiple sclerosis. Pt reports he did get the ride situation worked out, as his daughter who lives in [place] will be able to come and pick him up. 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 Pt is able to give some life review and seems eager to get home to be able to care for his . Daughter is in route, pt has requested IV's be removed. This worker wishes pt well, and does share with BASIL Morocho his urgency in being able to get home to care for his spouse. This worker will follow up.
[2019-11-22 09:40] VITALS: BP 124/74
== END 2019-11-22 09:40 | disposition home or self-care (01) ==
LOC: ER 13:03 → EDUNIT# 13:03 → CATH 13:15 → CSD 14:54 → 4TH 19:22 → CATH 11-22 09:40
PROVIDERS: ATTEND Internal Medicine Cardiovascular Disease
DX: I25.110 Atherosclerotic heart disease of native coronary artery with unstable angina pectoris (principal); I71.4 Abdominal aortic aneurysm, without rupture; I10 Essential (primary) hypertension; E78.5 Hyperlipidemia, unspecified; F17.210 Nicotine dependence, cigarettes, uncomplicated; Z79.899 Other long term (current) drug therapy; Z88.5 Allergy status to narcotic agent; Z95.5 Presence of coronary angioplasty implant and graft; Z20.828 Contact with and (suspected) exposure to other viral communicable diseases
CPT/HCPCS: 36221; 71045; 80053 ×2; 80061; 83735; 83874; 83880; 84484; 85025; 85027; 85610; 85730; 93005 ×2; 93041; 93458; 99285; C1760; C1894; U0002; 36415; 87635

== ENCOUNTER 2020-06-03 14:07 | Outpatient (RCR) | payer MEDICARE ==
[~2020-06-03 14:07] MED LIST changes: -GARL400T14 PO; +GARL400T15 PO; -HEParin 1000 UNIT/ML (10ML VIAL) FOR BOLUS ONE; +ISOS30TA82 PO; -LISI-552 PO; +LISI20TA26 PO; -LISI40TA PO; +LISI40TA9 PO; -MIDAZOLAM 5 MG/5 ML (VERSED) VIAL ONE; -NITRO DRIP 25000 MCG/D5W 0 ML IV ONE; -fentaNYL INJECTION 100 MCG/2 ML AMP ONE
[2020-06-03 16:02] LABS: BASOPHILS # (AUTO) 0.1 10^3/uL (0.0-0.1); BASOPHILS % (AUTO) 1 % (0-10); EOSINOPHILS # (AUTO) 0.2 10^3/uL (0.0-0.3); EOSINOPHILS % (AUTO) 2 % (0-10); HEMATOCRIT 28 % (40-54); HEMOGLOBIN 8.7 g/dL (13.3-17.7); LYMPHOCYTES # (AUTO) 2.2 10^3/uL (1.0-4.0); LYMPHOCYTES % (AUTO) 31 % (12-44); MEAN CORPUSCULAR HEMOGLOBIN 28 pg (25-34); MEAN CORPUSCULAR HGB CONC 32 g/dL (32-36); MEAN CORPUSCULAR VOLUME 88 fL (80-99); MEAN PLATELET VOLUME 8.6 fL (9.0-12.2); MONOCYTES # (AUTO) 0.7 10^3/uL (0.0-1.0); MONOCYTES % (AUTO) 9 % (0-12); NEUTROPHILS # (AUTO) 4.1 10^3/uL (1.8-7.8); NEUTROPHILS % (AUTO) 57 % (42-75); PLATELET COUNT 261 10^3/uL (130-400); WHITE BLOOD COUNT 7.1 10^3/uL (4.3-11.0)
[2020-06-03 16:27] LABS: ALANINE AMINOTRANSFERASE 14 U/L (0-55); ALKALINE PHOSPHATASE 172 U/L (40-136); BILIRUBIN,TOTAL 0.4 MG/DL (0.1-1.0); BUN/CREATININE RATIO 13; CALCIUM 9.1 MG/DL (8.5-10.1); CARBON DIOXIDE 24 MMOL/L (21-32); CHLORIDE 103 MMOL/L (98-107); CREATININE SERUM 0.76 MG/DL (0.60-1.30); GFR ESTIMATED > 60; GLUCOSE 84 MG/DL (70-105); POTASSIUM 3.9 MMOL/L (3.6-5.0); SODIUM 135 MMOL/L (135-145); TOTAL PROTEIN 7.3 GM/DL (6.4-8.2)
[2020-06-16] MEDS ORDERED: CYCL10TA9 PO (14:24)
[2020-06-16] MEDS ORDERED: BACL5TAB PO (15:23)
[2020-06-16] MEDS ORDERED: ACHD5005 PO (15:23)
[2020-06-17] MEDS ORDERED: ISOS30TA82 PO (14:56)
== END 2020-06-20 | disposition home or self-care (01) ==
LOC: ONC 14:07
PROVIDERS: ATTEND Internal Medicine Hematology & Oncology
DX: C90.20 Extramedullary plasmacytoma not having achieved remission (principal); D63.0 Anemia in neoplastic disease; E78.5 Hyperlipidemia, unspecified; I10 Essential (primary) hypertension; Z79.82 Long term (current) use of aspirin; Z79.899 Other long term (current) drug therapy; Z79.02 Long term (current) use of antithrombotics/antiplatelets
CPT/HCPCS: 80053; 82728; 82784 ×3; 83540; 83550; 83883; 84165; 84166; 85025; G0463; 84155; 99214

== ENCOUNTER → 2020-06-09 | Outpatient (CLI) | payer MEDICARE ==
[~2020-06-09] MED LIST changes: +GADOBUTROL 7.5 MMOL/7.5 ML (GADAVIST) VIAL IV ONE
--- NOTE | 2020-06-09 16:40 | Diagnostic Imaging Report ---
PROCEDURE: MRI lumbar spine with and without contrast. TECHNIQUE: Multiplanar, multisequence MRI of the lumbar spine was performed with and without contrast. INDICATION: Personal history of malignant neoplasm. COMPARISON: None available. FINDINGS: Multifocal areas of osseous neoplasm are present throughout the visualized spine. These areas of neoplasm cause T1 hypointense marrow replacement, T2 hyperintense and have avid enhancement. All of the vertebral bodies throughout the thoracic spine are involved, as well as the S1 vertebral body and posterior elements of the sacrum. Within T11, the interosseous neoplasm causes expansion of the vertebral body resulting in bulging of posterior endplate, enlargement of the pedicles and overall resulting in [id number] spinal stenosis in a near circumferential fashion due to the expansile nature. Additionally, there is some thin epidural enhancement in this region both anterior and posterior likely due to extraosseous extension into the epidural space. The infiltrating neoplasms extends beyond the inferior endplate into the T11-T12 disc space. Similar intervertebral extension is present at T12-L1 and L5-S1. There is central height loss at L4 which may be due to a Schmorl's node versus less likely superimposed fracture. There are no additional sites of moderate or high-grade spinal canal narrowing. No large disc bulges or herniations. No compression of the spinal cord or intrathecal nerve roots is appreciated. IMPRESSION: 1. 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 2. At T11, the entire vertebral body is expanded by neoplasm results in posterior bulge of the endplate, and there is also enlargement of the pedicles due to osseous expansion of neoplasm. Overall, this results in [id number]-ag-[id number] spinal stenosis from the osseous encroachment. Additionally, there is some thin epidural enhancement in this region likely due to some early extraosseous extension of the neoplasm into the epidural space. 3. There are multiple sites of extraosseous extension into the intervertebral spaces at T11-T12, T12-L1 and L5-S1. Dictated by: Dictated on workstation # [id number]
--- NOTE | 2020-06-09 17:07 | Diagnostic Imaging Report ---
PROCEDURE: MR imaging cervical spine with and without contrast. TECHNIQUE: Multiplanar and multisequence MRI of the cervical spine was performed with and without contrast. INDICATION: History of plasmacytoma. COMPARISON: None available. FINDINGS: Large tuohe-zo-kyrt material processor images demonstrate T1 hypointense metastatic lesions involving the T5 and T7 vertebral bodies. Within the cervical spine, there has been ACDF of C6-T2. There appear to be old fractures and/or destructive changes at C7 and T1. At this site, there is no associated enhancing soft tissue mass lesions. There is some susceptibility artifact associated with the metallic hardware. In the posterior arch of C2 along the base of spinous process, there is likely marrow replacing process that is due to neoplastic lesion. The spinous process of T2 has enhancing tiny 5 x 5 mm lesion within it. Postcontrast imaging does not show pathologic enhancement within the spinal canal itself. There is cervical cord maintains normal size and signal. No cerebellar tonsillar ectopia. No high-grade spinal stenosis or foraminal narrowing. At C5-C6, there is mild spinal stenosis due to combination of disc protrusion and ligamentum flavum hypertrophy. IMPRESSION: 1. Neoplastic lesions are noted in T5 and T7 vertebral bodies, as well as the posterior elements of C2 and T2. These may be metastatic disease versus multiple myeloma. 2. No soft tissue neoplasm within the cervical spine. No high-grade spinal stenosis. 3. Prior ACDF at C6-T2 which is likely secondary to pathologic or traumatic fractures of C7 and T1. Dictated by: Dictated on workstation # [id number]
== END ==
LOC: RAD 12:47
PROVIDERS: ATTEND Internal Medicine Hematology & Oncology
DX: M48.04 Spinal stenosis, thoracic region (principal); D49.89 Neoplasm of unspecified behavior of other specified sites; Z85.79 Personal history of other malignant neoplasms of lymphoid, hematopoietic and related tissues
CPT/HCPCS: 72156; 72158